=== PATIENT | female | born 1980 ===

== ENCOUNTER 2021-06-19 12:56 | Outpatient (CLI) | payer OTHER | END 2021-06-19 12:57 | disposition home or self-care (01) | LOC: T RESPIRAT 12:56 → LAB 12:56 | PROVIDERS: ATTEND Surgery | DX: R06.02 Shortness of breath (principal) ==

== ENCOUNTER 2024-07-13 12:25 | Outpatient (CLI) | payer OTHER | END 2024-07-13 12:33 | disposition home or self-care (01) | LOC: EKG 12:25 | PROVIDERS: ATTEND Urology | DX: N20.0 Calculus of kidney (principal); N20.1 Calculus of ureter ==